=== PATIENT | female | born 1980 | race African-American/Black ===

== ENCOUNTER 2017-10-20 18:25 | Emergency (ER) | payer SELFPAY ==
[2017-10-20 19:09] LABS: BASOPHILS 0.3 % (0-2); EOSINOPHILS 1.4 % (0-7); HEMATOCRIT 35.3 % (36.0-48.0); HEMOGLOBIN 10.8 g/dL (12-16); IMMATURE GRANULOCYTES 0.2 % (0-5); LYMPHOCYTES 32.9 % (15-50); MCHC 30.6 g/dL (31.0-37.0); MCV 75.3 fL (80.0-100.0); MEAN PLATELET VOLUME 9.3 fL (7.4-10.4); MONOCYTES 5.5 % (2-11); NEUTROPHILS 59.7 % (40-80); PLATELET COUNT 346 10x3/uL (130-400); RBC 4.69 10x6/uL (4.00-5.40); RDW 17.6 % (11.5-14.5); WBC 10.7 10x3/uL (4.8-10.8)
[2017-10-20 19:13] LABS: APPEARANCE HAZY (CLEAR); BILIRUBIN NEGATIVE (NEGATIVE); COLOR DK YELLOW (YELLOW); GLUCOSE NEGATIVE (NEGATIVE); KETONE NEGATIVE (NEGATIVE); NITRITE NEGATIVE (NEGATIVE); PROTEIN NEGATIVE (NEGATIVE); SPECIFIC GRAVITY 1.015 (1.005-1.020); UROBILINOGEN NORMAL (NORMAL)
[2017-10-20 19:15] LABS: EPITHELIAL CELLS 0-5 /hpf (0-5); RED CELLS - URINE >50 /hpf (0-5); WHITE CELLS - URINE 0-5 /hpf (0-5)
[2017-10-20 19:16] LABS: BACTERIA FEW /hpf (NONE SEEN)
[2017-10-20 19:26] LABS: HCG SERUM NEGATIVE (NEGATIVE)
[2017-10-20 19:38] LABS: ALKALINE PHOSPHATASE 76 U/L (46-116); ALT (SGPT) 33 U/L (10-68); BILIRUBIN - TOTAL 0.31 mg/dL (0.2-1.3); CALC OSMOLALITY 274 mosm/kg (275-300); CALCIUM 9.4 mg/dL (8.5-10.1); CARBON DIOXIDE 27.8 mmol/L (21.0-32.0); CHLORIDE - SERUM 104 mmol/L (98-107); CREATININE - SERUM 0.8 mg/dL (0.6-1.3); GLUCOSE 107 mg/dL (74-106); POTASSIUM - SERUM 3.6 mmol/L (3.5-5.1); PROTEIN - SERUM 8.2 g/dL (6.4-8.2); SODIUM 138 mmol/L (136-145); UREA NITROGEN 9 mg/dL (7-18); eGFR NON AFRICAN AMERICAN 86 mL/min (90-120)
[2017-10-20 19:41] LABS: THYROID STIMULATING HORMONE 0.95 uIU/mL (0.36-3.74)
[2017-10-20 20:30] LABS: % SATURATION 10 % (15-55); IRON 27 ug/dl (35-150); TOTAL IRON BIND CAPACITY 258 ug/dl (260-445); UNSAT IRON BIND CAPACITY 231 ug/dl (150-375)
[2017-10-23 08:19] LABS: FOLATE (FOLIC ACID) - SERUM 13.8 ng/mL (>3.0)
== END 2017-10-20 20:15 | disposition home or self-care (01) ==
LOC: D.ER 18:25
PROVIDERS: Family Medicine
DX: N93.8 Other specified abnormal uterine and vaginal bleeding (principal); D50.9 Iron deficiency anemia, unspecified